=== PATIENT | female | born 1965 | race Caucasian/White ===

== ENCOUNTER → 2017-08-28 | Outpatient (REF) | payer BC | LOC: M LAB REF 12:46 | DX: D72.819 Decreased white blood cell count, unspecified (principal) | CPT/HCPCS: 88300 ==

== ENCOUNTER → 2019-01-23 | Outpatient (REF) ==
[~2019-01-23] MED LIST: ACTI300C PO; ASAC800T3 PO; B-122500 PO; BACITAB PO; BLAC40CA PO; CALCD50TA PO; CALCTAB74 PO; CHOL4POW4 PO; CIPR-249 PO; COLA100C5 PO; DELZ400C PO; DELZICOL PO; FERR325T3 PO; FLAG500T PO; FURO20TA2 PO; GNP650TA8 PO; OMEP40CA97 PO; PANT40TA3 PO; PERC5TAB12 PO; SPIR50TA4 PO; TRAM50TA2 PO; TYLE325T5 PO; URSO300C3 PO; VITA200016 PO; XIFA550T PO; calcium PO; humira; vitamin D PO
== END ==
LOC: M LAB LCGH 15:43
PROVIDERS: ATTEND Physician Assistant
DX: D22.5 Melanocytic nevi of trunk (principal)